=== PATIENT | male | born 1980 | race African-American/Black ===

== ENCOUNTER 2021-02-11 09:20 | Emergency (ER) | payer SELFPAY ==
[~2021-02-11] VITALS: Ht 175.3 cm; Wt 90.9 kg
[2021-02-11 09:29] VITALS: BP 162/95
[2021-02-11] MEDS ORDERED: BUPIVACAINE HCL/PF 0.25% 10 ML VIAL SQ ONE (10:15)
[2021-02-11] MEDS ORDERED: PERTUSS(ACELL),DIPH,TET VAC/PF 0.5 ML SYRINGE IM. ONE (10:15)
== END 2021-02-11 10:44 | disposition home or self-care (01) ==
LOC: EMS 09:24
DX: S61.213A Laceration without foreign body of left middle finger without damage to nail, initial encounter (principal); W26.0XXA Contact with knife, initial encounter; Y93.89 Activity, other specified; Y92.89 Other specified places as the place of occurrence of the external cause; Y99.8 Other external cause status
CPT/HCPCS: 12001; 90471; 90715; 99283; J3490

== ENCOUNTER 2021-02-19 19:45 | Emergency (ER) | payer OTHER ==
[~2021-02-19] VITALS: Ht 175.3 cm; Wt 97.7 kg
[2021-02-19 20:03] VITALS: BP 149/96
== END 2021-02-19 20:50 | disposition home or self-care (01) ==
LOC: EMS 19:46
DX: S61.213D Laceration without foreign body of left middle finger without damage to nail, subsequent encounter (principal); R20.0 Anesthesia of skin; X58.XXXD Exposure to other specified factors, subsequent encounter
CPT/HCPCS: 99281; Z7502